=== PATIENT | male | born 1990 | race Two or more races ===

== ENCOUNTER 2022-04-08 19:30 | Emergency (ER) | payer OTHER ==
[~2022-04-08] VITALS: Ht 172.7 cm; Wt 90.0 kg
[2022-04-08] MEDS ORDERED: ONDANSETRON HCL 4 MG/2 ML VIAL IM ONE (20:00)
[2022-04-08] MEDS ORDERED: SILVER SULFADIAZINE 1 % TOPICAL CREAM 50GM TOP ONE (20:00)
[2022-04-08] MEDS ORDERED: MORPHINE SULFATE 4 MG/ML SYR/VIAL IM ONE (20:00)
[2022-04-08] MEDS ORDERED: HYDROcodone-ACET 5/325MG TAB PO ONE (20:00)
[2022-04-08] MEDS ORDERED: HYDR-4902 PO (20:26)
[2022-04-08 20:30] VITALS: BP 120/66
== END 2022-04-08 20:32 | disposition home or self-care (01) ==
LOC: ER 19:30 → EDBD 19:30 → ER 20:32
DX: T25.222A Burn of second degree of left foot, initial encounter (principal); X11.8XXA Contact with other hot tap-water, initial encounter; Y93.89 Activity, other specified; Y92.89 Other specified places as the place of occurrence of the external cause; Y99.8 Other external cause status
CPT/HCPCS: 16020; 96372; 99284; J2270; J2405